=== PATIENT | female | born 1985 | race African-American/Black ===

== ENCOUNTER 2019-05-31 04:38 | Emergency (ER) | payer MEDICAID ==
[~2019-05-31] VITALS: Ht 157.5 cm; Wt 56.7 kg
[2019-05-31 08:00] VITALS: BP 132/88
== END 2019-05-31 08:17 | disposition home or self-care (01) ==
LOC: ER 04:38 → EDBD 04:38 → ER 08:17
DX: S50.01XA Contusion of right elbow, initial encounter (principal); M35.3 Polymyalgia rheumatica; Z90.49 Acquired absence of other specified parts of digestive tract; V49.49XA Driver injured in collision with other motor vehicles in traffic accident, initial encounter; Y93.89 Activity, other specified; Y99.8 Other external cause status; Y92.89 Other specified places as the place of occurrence of the external cause
CPT/HCPCS: 72170; 73020; 73080

== ENCOUNTER 2022-09-28 17:05 | Emergency (ER) | payer MEDICAID ==
[~2022-09-28] VITALS: Ht 152.4 cm; Wt 61.5 kg
[2022-09-28 19:35] VITALS: BP 136/94
== END 2022-09-28 19:36 | disposition home or self-care (01) ==
LOC: ER 17:05
DX: G25.0 Essential tremor (principal); Z88.8 Allergy status to other drugs, medicaments and biological substances; Z91.013 Allergy to seafood; Z90.49 Acquired absence of other specified parts of digestive tract